=== PATIENT | male | born 1940 | race Caucasian/White ===

== ENCOUNTER 2024-09-29 09:40 | Day surgery (SDC) | payer MEDICARE, OTHER ==
[2024-09-29] MEDS ORDERED: Midazolam 1 MG/ML 2 ML SDV IV ONE (09:41)
[2024-09-29] MEDS ORDERED: fentaNYL 100 MCG/2 ML SDV IV ONE (09:41)
[2024-09-29] MEDS ORDERED: Lactated Ringers 1,000 ML IV PRN (09:45)
[2024-09-29] MEDS ORDERED: Sodium Chloride 0.9% 10 ML Syringe FLUSH PRN (09:45)
[2024-09-29] MEDS: acetaZOLAMIDE 500 MG Cap.ER PO ONE (11:41)
== END 2024-09-29 12:11 | disposition home or self-care (01) ==
LOC: FB.SDS 09:40
PROVIDERS: ATTEND Ophthalmology
DX: E11.36 Type 2 diabetes mellitus with diabetic cataract (principal); H25.23 Age-related cataract, morgagnian type, bilateral; H35.3211 Exudative age-related macular degeneration, right eye, with active choroidal neovascularization; H35.3121 Nonexudative age-related macular degeneration, left eye, early dry stage; E11.22 Type 2 diabetes mellitus with diabetic chronic kidney disease; I12.9 Hypertensive chronic kidney disease with stage 1 through stage 4 chronic kidney disease, or unspecified chronic kidney disease; N18.30 Chronic kidney disease, stage 3 unspecified; E78.2 Mixed hyperlipidemia; Z79.82 Long term (current) use of aspirin; Z79.899 Other long term (current) drug therapy
CPT/HCPCS: A9270-GY; J2250; J3010; V2632

== ENCOUNTER 2024-10-20 08:27 | Day surgery (SDC) | payer MEDICARE, OTHER ==
[2024-10-20] MEDS ORDERED: Midazolam 1 MG/ML 2 ML SDV IV ONE (08:28)
[2024-10-20] MEDS ORDERED: fentaNYL 100 MCG/2 ML SDV IV ONE (08:28)
[2024-10-20] MEDS ORDERED: Lactated Ringers 1,000 ML IV SCH (08:30)
[2024-10-20] MEDS ORDERED: Sodium Chloride 0.9% 10 ML Syringe FLUSH PRN (08:30)
[2024-10-20] MEDS: acetaZOLAMIDE 500 MG Cap.ER PO ONE (10:06)
== END 2024-10-20 10:30 | disposition home or self-care (01) ==
LOC: FB.SDS 08:27
PROVIDERS: ATTEND Ophthalmology
DX: E11.36 Type 2 diabetes mellitus with diabetic cataract (principal); E11.22 Type 2 diabetes mellitus with diabetic chronic kidney disease; I12.9 Hypertensive chronic kidney disease with stage 1 through stage 4 chronic kidney disease, or unspecified chronic kidney disease; N18.30 Chronic kidney disease, stage 3 unspecified; E78.2 Mixed hyperlipidemia; Z79.899 Other long term (current) drug therapy; F17.210 Nicotine dependence, cigarettes, uncomplicated
CPT/HCPCS: 66984; A9270; J2250; J3010; V2632; 00142; 99100